=== PATIENT | female | born 1970 | race Caucasian/White ===

== ENCOUNTER → 2016-06-24 | Outpatient (CLI) | payer OTHER ==
[~2016-06-24] VITALS: Ht 172.7 cm; Wt 66.2 kg
[~2016-06-24] MED LIST: AZATHIOPRINE50 MG PO; CLONIDINE0.1 PO; EFFEXOR XR37.5 MG PO; GABAPENTIN 100100 MG PO; HYDROCODONE-APA1 TA1 PO; IMURAN 50MG TAB50 M1 PO; LINZESS290 MCG PO; MELATONIN3 MG PO; METHADONE HCL5 MG PO; MOBIC15 MG PO; MS CONTIN15 MG PO; NAPROSYN500 MG PO; NEURONTIN 300300 M1 PO; NEURONTIN100 MG PO; OXYCODON-ACETA1 EAC1 PO; OXYCODONE HCL E10 MG PO; OXYCODONE-ACET1 EACH PO; PERCOCET 5-3251 EACH PO; PERCOCET 7.5-31 EAC1 PO; PERCOCET 7.5-31 EACH PO; PERCOCET PO; PREDNISONE 10 M10 M1 PO; PREDNISONE 10 M10 MG PO; ROXICODONE5 MG PO; TOPROL XL25 MG PO; TYLENOL PM EX-1 EACH
--- NOTE | ~2016-06-24 | HPC ---
[facility] [address] [place] [address] PAIN MANAGEMENT CONSULTATION Name: SAHRA AMAYA Room #: REG LEIDA Hsieh#: [id number] Admission: 06/24/16 Attend Phys: Deon Mccracken DO Discharge: Date of : 68 Report #: [id number] THIS REPORT FOR: //name// CC: Merissa Mccracken The patient is a 45-year-old female well known to the pain clinic, being treated for neuropathic pain, status post cervical decompressive laminectomy, cervical radicular symptoms requiring complex medication management. 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 We have tried multiple medications. Currently, she does take gabapentin 300 mg tablets 1 in the morning, 1 at noon, 3 at night and this seems to afford some efficacy. She has used opiate analgesics for some time. We have gone back and forth with various agents, currently using oxycodone (Percocet) 7.5/325 averaging about 3 a day, roughly 20 mg of oxycodone equivalent to 30 mEq of morphine. The patient presents to pain clinic today, we had a prolonged visit from 10:30 to 10:55. Greater than 50% of this 25-minute visit was spent counseling the patient. She is desirous of weaning off opiates. She is very concerned about opiate habituation. She has already I think some opiate tolerance. She realizes that she will have some chronic pain. She had neck surgery in January 2015. She had ongoing radicular symptoms, primarily the left shoulder and arm. I am not entirely sure all of her pain is coming from neuromyelitis optica. I think there is certainly a component of cervical radiculopathy. PHYSICAL EXAMINATION: Shows a 45-year-old female, BMI is 22.2 kilograms per meter squared. Vital signs stable as noted on the EMR with modest diastolic hypertension, 150/98, pulse 86, respirations 16. Cervical range of motion is modestly limited, but there is no neural tensioning symptoms noted (negative Lhermitte's). Upper extremity strength is generally symmetric about 4/5. Hand grasp is symmetric. Deep tendon reflexes of the biceps, triceps, brachioradialis are generally symmetric. Skin integument is intact. Nothing dramatically corresponding with primary pain component of neck, both shoulders, left arm. She describes it as lancinating burning quality. Simply does sound much more neuropathic. With the desire to wean off of opiate analgesics, we discussed therapeutic options. RECOMMENDATION: We will simply convert to Percocet 5/325, have her take 1 tablet 3 times a day for 10 days, 2 times a day for 10 days and then once a day for 10 days. In 30 days, we can wean off of opiates. I did start her on clonidine 0.1 h.s. and this seems to be helping with sleep. This will be useful if there is any component of opiate habituation, withdrawal and associated sympathetic outflow. She has had a therapeutic dose of 1500 mg of gabapentin a day. If she has ongoing neuropathic pain at next visit, we may consider addition of a complimentary agent, sodium channel membrane stabilizer such as Trileptal or Tegretol can afford some synergy with the calcium channel membrane stabilizing agents (gabapentin and Lyrica). If she requires an opiate in the [facility] [address] [place] [address] PAIN MANAGEMENT CONSULTATION Name: SAHRA AMAYA Room #: REG LEIDA Hsieh#: [id number] Admission: 06/24/16 Attend Phys: Deon Mccracken DO Discharge: Date of : 68 Report #: [id number] future, we may consider low dose methadone with both opiate and NMDA receptor activity for neuropathic pain, Discharged in good and stable condition after a 25-minute visit was spent counseling the patient. <ELECTRONICALLY SIGNED> By: Deon Mccracken DO 06/26/16 0824 [id number] Deon Mccracken DO /nt
[2016-06-24 10:18] VITALS: BP 150/98
== END | disposition home or self-care (01) ==
LOC: PAIN 07:22
DX: G36.0 Neuromyelitis optica [Devic] (principal); Z98.890 Other specified postprocedural states; Z87.891 Personal history of nicotine dependence